=== PATIENT | male | born 1950 | race American Indian/Alaskan Native ===

== ENCOUNTER 2016-08-03 07:31 | Outpatient (CLI) | payer BC ==
[2016-08-03 08:05] LABS: Blood Urea Nitrogen 15 mg/dL (9-20)
--- NOTE | 2016-08-03 12:28 | Magnetic Resonance Report ---
MRI PELVIS WITH AND WITHOUT CONTRAST INDICATION: Prostate cancer. COMPARISON: 06/18/2016 CT. FINDINGS: Multiplanar and multisequence MRI of the pelvis performed utilizing 12 ml Multihance intravenously. Urinary bladder distention again limited, though mild diffuse bladder wall prominence/exaggerated thickening may again be noted. Surrounding fat planes appear preserved. Subtle 6 mm signal abnormality posteroinferior to the urinary bladder on the left, axial series 5, image 22 may lie in the peripheral superior aspect of the prostate or questionably in the seminal vesicle inferiorly. Grossly homogenous prostate and preserved periprostatic fat planes otherwise, to the extent assessed. No free fluid or significant adenopathy. Rectosigmoid stool. Normal imaged bowel, marrow and muscle signal. Slight L4-L5 degenerative changes may be present. Mild SI joint degenerative changes/spurring as well, right more than left. Approximately 1.8 cm fat containing right inguinal hernia. Minimal bilateral peritesticular fluid. CONCLUSION: 1. Questionable prostate/seminal vesicle signal abnormality/neoplastic involvement on the left in this patient with provided history of prostate carcinoma. Urology correlation suggested. 2. Various other incidental findings, including prominent/exaggerated urinary bladder wall thickness and small fat containing right inguinal hernia, amongst others, as described. Thank you for the opportunity to participate in this patient's care.
== END 2016-08-03 07:32 | disposition home or self-care (01) ==
LOC: MRI 07:31
PROVIDERS: ATTEND Radiology Radiation Oncology
DX: C61 Malignant neoplasm of prostate (principal)
CPT/HCPCS: 36415; 72197; 82565; 84520; A9577

== ENCOUNTER 2020-10-17 11:24 | Outpatient (CLI) | payer MEDICARE, OTHER ==
--- NOTE | 2020-10-17 16:06 | Vascular Lab Report ---
DUPLEX DOPPLER LOWER EXTREMITY VEINS, LEFT INDICATION / CLINICAL INFORMATION: EDEMA,UNSPECIFIED. TECHNIQUE: Duplex doppler imaging was performed through the veins of the left lower extremity using v enous compression and other maneuvers. COMPARISON: None available. FINDINGS: LEFT COMMON FEMORAL VEIN: Negative. LEFT FEMORAL VEIN: Negative. LEFT POPLITEAL VEIN: Negative. LEFT CALF VEINS: Negative. ADDITIONAL FINDINGS: There is a Escalera's cyst measuring 3.2 x 0.7 cm within the left popliteal fossa. IMPRESSION: 1. No sonographic evidence for DVT in the left lower extremity. 2. Left Escalera's cyst. Scribed by: Carmela Trejo RDMS, RVT Scribed: 10/17/2020 12:49 PM I have reviewed the images, agree with this report, and edited this report as needed. Signer Name: Jose Juan Yu MD Signed: 10/17/2020 4:02 PM Workstation Name: [id number]
== END 2020-10-17 11:25 | disposition home or self-care (01) ==
LOC: VAS 11:24
PROVIDERS: ATTEND Internal Medicine Cardiovascular Disease
DX: M71.22 Synovial cyst of popliteal space [Baker], left knee (principal); M79.89 Other specified soft tissue disorders